=== PATIENT | female | born 1970 | race Hispanic/Latino ===

== ENCOUNTER 2022-07-22 23:14 | Emergency (ER) | payer OTHER, SELFPAY ==
[~2022-07-22] VITALS: Ht 154.9 cm; Wt 73.5 kg
[~2022-07-22 23:14] MED LIST: DICY20TA2 PO; LEVO-70 PO; METR375C2 PO; ONDA4TAB10 PO
[2022-07-22 23:52] LABS: BASOPHILS % (AUTO) 0.5 % (0.0-5.0); EOSINOPHILS % (AUTO) 0.1 % (0.0-8.0); HEMATOCRIT 35.7 % (36-48); LYMPHOCYTES % (AUTO) 14.4 % (21.0-51.0); MEAN CORPUSCULAR HEMOGLOBIN 21.1 pg (27.0-33.0); MEAN CORPUSCULAR HGB CONC 30.3 g/dL (32.0-36.0); MEAN CORPUSCULAR VOLUME 69.9 fL (79-99); MONOCYTES % (AUTO) 5.6 % (3.0-13.0); NEUTROPHILS % (AUTO) 79.1 % (40.0-77.0); PLATELET COUNT (AUTO) 392 K/uL (130-400); RED BLOOD CELL COUNT(AUTO) 5.11 MIL/uL (4.00-5.50); RED CELL DISTRIBUTION WIDTH 21.2 % (11.0-15.5); WHITE BLOOD COUNT (AUTO) 9.2 K/uL (4.8-10.8)
[2022-07-22 23:57] VITALS: BP 114/63
[2022-07-22 23:59] LABS: APPEARANCE,URINE CLEAR (CLEAR); BILIRUBIN,URINE NEGATIVE (NEGATIVE); COLOR,URINE COLORLESS (YELLOW); GLUCOSE, URINE (UA) NEGATIVE (NEGATIVE); KETONES,URINE NEGATIVE (NEGATIVE); LEUKOCYTE ESTERASE ,URINE 500 Leu/uL (NEGATIVE); NITRATE,URINE NEGATIVE (NEGATIVE); OCCULT BLOOD,URINE NEGATIVE (NEGATIVE); PROTEIN,URINE NEGATIVE (NEGATIVE); UROBILINOGEN,URINE 0.2 mg/dL (0.2-1.0)
[2022-07-23] MEDS ORDERED: ACETAMINOPHEN 500 MG TABLET PO ONE
[2022-07-23] MEDS ORDERED: MORPHINE 2 MG SYG IVP ONE
[2022-07-23] MEDS ORDERED: ONDANSETRON 4MG INJ IVP ONE
[2022-07-23 00:12] LABS: BACTERIA,URINE RARE /HPF (None Seen); MUCUS,URINE RARE LPF (None Seen); SQUAMOUS EPITHELIAL CELL,UR FEW /HPF (0-2)
[2022-07-23] MEDS ORDERED: ZOSYN 3.375GM +NS 50ML IVPB ONE (00:30)
[2022-07-23] MEDS ORDERED: 0.9%NACL 1000ML 1,000 ML IV SCH ×3 (00:30)
[2022-07-23 01:07] LABS: CARBON DIOXIDE 21 mmol/L (21-32); CHLORIDE 102 mmol/L (101-111); GLOMERULAR FILTR. RATE CALC 67 mL/min (>90); GLUCOSE,RANDOM 105 mg/dL (70-105); POTASSIUM 3.8 mmol/L (3.5-5.1); SODIUM SERUM 138 mmol/L (136-145); UREA NITROGEN, BLOOD 4 mg/dL (7-18)
[2022-07-23 01:14] LABS: ALANINE AMINOTRANSFERASE 26 U/L (12-78); ALBUMIN 4.2 g/dL (3.5-5.0); ASPARTATE AMINOTRANSFERASE 21 U/L (10-37); TOTAL PROTEIN, SERUM 8.7 g/dL (6.0-8.3)
[2022-07-23 01:19] LABS: LIPASE < 50 U/L (114-286)
[2022-07-23 02:00] LABS: AMYLASE 59 U/L (25-115); CREATINE KINASE, TOTAL 71 U/L (21-232)
[2022-07-23] MEDS ORDERED: IOHEXOL-350 75 ML VIAL IV ONE (02:17)
[2022-07-23] MEDS ORDERED: IBUP-1493 PO (03:33)
[2022-07-23] MEDS ORDERED: ONDA-104 PO (03:33)
[2022-07-23] MEDS ORDERED: NIRM1TAB PO (03:33)
== END 2022-07-23 05:03 | disposition home or self-care (01) ==
LOC: EDH 23:14
DX: U07.1 COVID-19 (principal); R10.2 Pelvic and perineal pain; M79.10 Myalgia, unspecified site; Z79.899 Other long term (current) drug therapy; Z90.49 Acquired absence of other specified parts of digestive tract; Z98.890 Other specified postprocedural states
CPT/HCPCS: 99285; 96375; 87635; 96361 ×2; 82150; 82550; 84484; 80053; 83690; 85025; 85651; 87040 ×2; 87088; 87804 ×2; 83605 ×2; 81001; 36415 ×2; 74177; 96365; 71045; C9803; J7030; J2543; Q9967

== ENCOUNTER 2024-09-15 15:58 | Emergency (ER) | payer BC ==
[~2024-09-15] VITALS: Ht 165.1 cm; Wt 76.2 kg
[~2024-09-15 15:58] MED LIST changes: +IBUP-1493 PO; +NIRM1TAB PO; +ONDA-104 PO; +ONDA-243 PO; -ONDA4TAB10 PO
--- NOTE | 2024-09-15 16:11 | ERN ---
ED Note History of Present Illness Stated Complaint: DIZZY/ FEET AND HANDS ASLEEP/HEADACHE Chief Complaint: Dizzy/Light Headed Time Seen by MD: 16:04 Dictation: PATIENT IS A 54-YEAR-OLD FEMALE COMING IN TODAY WITH OCCIPITAL HEADACHE WITH DIZZINESS VERTIGO ONSET THIS MORNING. SHE STATES SHE HAS HAD THIS BEFORE HOWEVER NEVER HAD THE INSURANCE TO GO SEE A DOCTOR. SHE IS CURRENTLY ALERT AND ORIENTED X4 SPEECH IS CLEAR NIH IS 0. SHE DOES HAVE BILATERAL HORIZONTAL NYSTAGMUS. Allergies: Coded Allergies: No Known Allergies (Unverified Allergy, Unknown, 01/31/22) Home Meds Active Scripts Ondansetron HCl (Ondansetron HCl) 4 Mg Tablet, 4 MG PO TIDP PRN for VOMITING, #20 TAB Prov:RUPALI PITTS MD 07/23/22 Ibuprofen (Motrin/Advil) 800 Mg Tab, 800 MG PO TID, #30 TAB Prov:RUPALI PITTS MD 07/23/22 Nirmatrelvir/Ritonavir (Paxlovid Co-Pack (Eua)) 1 Each Tablet, 1 EACH PO BID, #1 PACK Prov:RUPALI PITTS MD 07/23/22 Ondansetron (Ondansetron Odt) 4 Mg Tab.rapdis, 4 MG PO TIDP, #21 TAB Prov:MARCO A BRAVO 01/31/22 Dicyclomine HCl (Bentyl) 20 Mg Tab, 20 MG PO QID, #28 TAB Prov:MARCO A BRAVO 01/31/22 Metronidazole (Flagyl) 375 Mg Capsule, 375 MG PO TID for 7 Days, #21 CAP Prov:MARCO A BRAVO 01/31/22 Levofloxacin (Levofloxacin) 500 Mg Tablet, 1 TAB PO DAILY for 10 Days, #10 TAB 0 Refills Prov:MARCO A BRAVO 01/31/22 Past Medical History Past Medical History: High Cholesterol Surgical History: Appendectomy Surgical History Other: TUBAL LIGATION Family History: Negative Social History: Lives with family History: Not Applicable RN Note Reviewed/Agreed w/PFSH: Yes Review of System Dictation CONSTITUTIONAL: NEGATIVE EXCEPT FOR HPI HEAD/FACE: NEGATIVE EXCEPT FOR HPI EENT: NEGATIVE EXCEPT FOR HPI RESPIRATORY: NEGATIVE EXCEPT FOR HPI GASTROINTESTINAL/ABDOMINAL: NEGATIVE EXCEPT FOR HPI GENITOURINARY: NEGATIVE EXCEPT FOR HPI MUSCULOSKELETAL: NEGATIVE EXCEPT FOR HPI INTEGUMENTARY: NEGATIVE EXCEPT FOR HPI NUMBNESS AND TINGLING ALL EXTREMITIES NEUROLOGICAL/PSYCH: NEGATIVE EXCEPT FOR HPI OCCIPITAL HEADACHE HEMATOLOGIC/LYMPHATIC: NEGATIVE EXCEPT FOR HPI ALL SYSTEMS NEGATIVE, EXCEPT NOTED ABOVE. 13 POINT REVIEW OF SYSTEMS ASSESSED AND ALL NEGATIVE EXCEPT FOR ABOVE. Initial Vital Sign VS Vital Signs Date Time Temp Pulse Resp B/P (MAP) Pulse Ox O2 Delivery O2 Flow Rate FiO2 09/15/24 16:05 98.1 89 18 125/80 99 09/15/24 16:17 Room Air* 0 21 Physical Exam Dictation VITAL SIGNS REVIEWED GENERAL APPEARANCE: ALERT, ORIENTED X 3, NO ACUTE DISTRESS, WELL DEVELOPED, NOURISHED. OBESE, SPEECH IS CLEAR HEAD AND FACE: NON-TRAUMATIC. EYES: PERRL, PINK CONJUNCTIVAS, EYELID NO TRAUMA, ANTERIOR CHAMBER WITH ARCUS SENILIS. EARS: PINNAS INTACT AND NO SIGNS OF TRAUMA OR ERYTHEMA EAR CANALS CLEAR AND NO DISCHARGE TM NO ERYTHEMA NOSE: NO DISCHARGE, NO BLEEDING. OROPHARYNX: MOUTH NORMAL, TONGUE PINK, PHARYNX CLEAR,NO ERYTHEMA, TONSILS NO EXUDATES, NO ABSCESSES NOTED, MUCOUS MEMBRANE MOIST NECK: SUPPLE, NON-TENDER, NO THYROMEGALY, NO MASSES, NO JVD, NO BRUITS BREAST:DEFERRED CHEST:NO TENDERNESS, NO CREPITUS, NO PARADOXICAL MOVEMENT, NO RETRACTIONS LUNGS:CLEAR, WELL-VENTILATED, SYMMETRIC, NO RALES, NO WHEEZING, NO RHONCHI, NO STRIDOR, GOOD BREATH SOUNDS BILATERALLY HEART: REGULAR RATE, REGULAR RHYTHM, NO MURMUR, NO GALLOPS VASCULAR: NO PERIPHERAL EDEMA, ABDOMEN: SOFT, POSITIVE BOWEL SOUNDS, NONDISTENDED, NO GUARDING, NONTENDER, NO REBOUND, NO MASSES NO HEPATOMEGALY, NO SPLENOMEGALY, NO NYE'S SIGN, NO HERNIAS. RECTAL: DEFERRED GENITAL: DEFERRED NEUROLOGICAL: NORMAL SPEECH, MOTOR FUNCTION INTACT, SENSORY FUNCTION INTACT NIH IS 0 MUSCULOSKELETAL: NECK NONTENDER, FULL RANGE OF MOTION, BACK NONTENDER, FULL RANGE OF MOTION, EXTREMITIES: NONTENDER, FULL RANGE OF MOTION SKIN: COLOR PINK, DRY, NO TURGOR, NO RASH, NO LACERATIONS, NO ABRASIONS, NO CONTUSIONS. LYMPHATIC: DEFERRED Results (Laboratory/Radiology) Laboratory/Radiology Laboratory Tests Test 09/15/24 16:49 White Blood Count 10.7 K/uL (4.8-10.8) Red Blood Count 4.66 MIL/uL (4.00-5.50) Hemoglobin 11.8 g/dL (12.0-16.0) L Hematocrit 36.1 % (36-48) Mean Corpuscular Volume 77.5 fL (79-99) L Mean Corpuscular Hemoglobin 25.3 pg (27.0-33.0) L Mean Corpuscular Hemoglobin Concent 32.7 g/dL (32.0-36.0) Red Cell Distribution Width 19.3 % (11.0-15.5) H Platelet Count 264 K/uL (130-400) Mean Platelet Volume 9.3 fL (7.5-10.5) Immature Granulocyte % (Auto) 0.7 % (0-1) Neutrophils (%) (Auto) 75.3 % (40.0-77.0) Lymphocytes (%) (Auto) 18.5 % (21.0-51.0) L Monocytes (%) (Auto) 4.1 % (3.0-13.0) Eosinophils (%) (Auto) 1.2 % (0.0-8.0) Basophils (%) (Auto) 0.2 % (0.0-5.0) Neutrophils # (Auto) 8.1 K/uL (1.8-7.7) H Lymphocytes # (Auto) 2.0 K/uL (1.0-4.8) Monocytes # (Auto) 0.4 K/uL (0.1-1.0) Eosinophils # (Auto) 0.13 K/uL (0.00-0.70) Basophils # (Auto) 0.02 K/uL (0.00-0.20) Absolute Immature Granulocyte (auto 0.07 K/uL (0-1) Nucleated Red Blood Cells 0.0 % (0.0-0.19) Red Blood Cell Morphology See comments Sodium Level 136 mmol/L (136-145) Potassium Level 3.3 mmol/L (3.5-5.1) L Chloride Level 99 mmol/L (101-111) L Carbon Dioxide Level 28 mmol/L (21-32) Blood Urea Nitrogen 14 mg/dL (7-18) Creatinine 0.7 mg/dL (0.5-1.0) Glomerular Filtration Rate Calc 101 mL/min (>90) Random Glucose 119 mg/dL (70-105) H Total Calcium 8.8 mg/dL (8.5-10.1) Troponin I High Sensitivity < 4 ng/L (4-50) L CT HEAD WITHOUT CONTRAST INDICATION: Occipital headache TECHNIQUE: Noncontrast axial helical CT images from the vertex through the skull base using 5 mm slice thickness without contrast material. CT was performed with one or more of the following dose reduction techniques: Automated exposure control, adjustment of the mA and/or kV according to patient size, or use of iterative reconstruction technique. COMPARISON: None FINDINGS: The cerebral and cerebellar hemispheres are age-appropriate in appearance. No evidence for abnormal extra-axial fluid collections or masses. The ventricles and sulci are normal in size and configuration. No evidence for intracranial parenchymal, epidural, or subdural hemorrhage, mass effect or midline shift. The camara-white matter differentiation is well preserved. No secondary evidence to suggest acute ischemia. The brainstem and cerebellum appear normal. The visualized orbits appear unremarkable. The visible paranasal sinuses and mastoid air cells are clear. The calvarium appears normal. IMPRESSION: No acute intracranial process identified. Labs Reviewed?: Yes EKG: (+) NSR EKG Comment: EKG normal sinus rhythm/heart rate 76/axis normal/no ectopy ED Course ED Course Orders Procedure Category Date Status Time Ct Head/Brain W/O CT 09/15/24 Resulted Contrast 16:07 Cbc With Differential LAB 09/15/24 Complete 16:07 Troponin I High LAB 09/15/24 Complete Sensitivity 16:07 Urinalysis Profile LAB 09/15/24 Logged 16:07 12 Lead Ekg Tracing- EKG 09/15/24 Resulted Technical 16:07 0.9%Nacl 1000ml (Ns PHA 09/15/24 Complete 1000ml) 16:30 Basic Metabolic Panel LAB 09/15/24 Complete 16:07 Meclizine Hcl 25 Mg PHA 09/15/24 Complete (Antivert 25 Mg) 16:30 Methylprednisolone PHA 09/15/24 Complete Succ 125mg (Solu-Medr 16:30 Potassium Bicarb/Cit PHA 09/15/24 Complete Ac 25meq (K-Lyte Ta 18:30 Current Medications Medications (Trade) Dose Ordered Sig/Marlyn Route PRN Reason Start Time Stop Time Status Last Admin Dose Admin Meclizine HCl (ANTIvert 25 mg) 50 mg ONCE ONCE PO 09/15/24 16:30 09/15/24 16:31 DC 09/15/24 18:20 Methylprednisolone Sodium Succinate (Solu-medROL 125MG) 125 mg ONCE ONCE IVP 09/15/24 16:30 09/15/24 16:31 DC 09/15/24 18:21 Potassium Bicarbonate (K-Lyte Tablet Eff 25 Meq Tablet.eff) 25 meq ONCE ONCE PO 09/15/24 18:30 09/15/24 18:31 DC 09/15/24 18:21 Sodium Chloride 1,000 ml @ 0 mls/hr ONCE ONCE IV 09/15/24 16:30 09/15/24 16:31 DC 09/15/24 18:18 Vital Signs Date Time Temp Pulse Resp B/P (MAP) Pulse Ox O2 Delivery O2 Flow Rate FiO2 09/15/24 18:35 97.9 74 18 122/67 100 Room Air* 0 21 09/15/24 16:17 98.1 89 18 125/80 99 Room Air* 0 21 09/15/24 16:05 98.1 89 18 125/80 99 1900/patient states she feels markedly improved after treatment with fluids potassium meclizine and Solu-Medrol. Her eyes are open NIH is 0 at bedside and she wishes to go home. Potassium was 3.3 and it was replaced HEART Score Response (Comments) Value History: Low suspicion (0) 0 Age: 45-65yrs (+1) 1 Risk Factors: 1-2 risk factors (+1) 1 Initial Troponin: Normal limit (0) 0 Total 2 Medical Decision Making [facility] MDM: Differential diagnosis: Subarachnoid, subdural, neurovascular lesion/ACS/AMI/vertigo/labyrinthitis/electrolyte imbalance Rationale: Tests considered and ordered secondary to shared decision making include:/dehydration EKG/labs/radiology Previous outside records reviewed: Old ER visits. Risk of complication and/or morbidity or mortality of patient management: None Medications-Per medication reconciliation Need for hospitalization: Patient does not meet criteria for hospitalization. No Need for emergency major/minor surgery: No There are no social concerns with this patient. Prescription drug management meclizine/prednisone Prescriptions will include symptomatic care Patient's prior external medical records from other ER visits were reviewed by me as indicated. Prior testing and results from previous visits were reviewed. Prior tests were taken into account with medical decision making and resource utilization, independent historian/historians were used to obtain complete med ical history. I independently interpreted the test that were performed, results were reviewed by me and considered findings on radiology if ordered. Medical management and examination interpretation discussions were had by me with other qualified healthcare professionals as indicated for the patient's care. DX & DISP Disposition: Discharge Departure Impression: Primary Impression: Benign positional vertigo Additional Impressions: Acute labyrinthitis, Hypokalemia, Hypochloremia Condition: Stable Scripts Methylprednisolone (Medrol) 4 Mg Tab.ds.pk 1 TAB PO AD for 6 Days, #21 TAB 0 Refills 6 on day 1 then reduce by one tablet daily until gone Prov: RENÉ LAMAS NP 09/15/24 Meclizine HCl (Meclizine HCl) 25 Mg Tablet 25 MG PO TID for vertigo, #30 TAB 0 Refills Prov: RENÉ LAMAS NP 09/15/24 Additional Instructions: Follow-up with primary care provider in 1 to 2 days. Take medications as directed here in the emergency room. Okay to continue home medications unless otherwise discussed during your visit in the emergency room today. Return to your nearest emergency room if symptoms worsen or if there is no improvement. Call 911 if you need immediate assistance. Take Tylenol or Motrin [id number] as needed and if no contraindications are present. Increase oral hydration. A wound culture or urine culture was ordered here in the emergency room department please follow-up with primary care provider and advise them to get repeat ports from our facility. If you had any Lew wrap/splints that were applied here, please do not remove them until you see your primary care or specialty. Take meclizine every 8 hours for the next three days. Take Medrol Dosepak as directed until gone. , follow up with your primary care doctor in the next 1-2 days. Referrals: SELF,REFERRAL (PCP) Time of Disposition: 19:04 I have reviewed the case, and I agree with, Diagnosis and Plan RENÉ LAMAS NP Sep 15, 2024 16:11
--- NOTE | 2024-09-15 16:28 | EKG ---
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
[2024-09-15 16:54] LABS: BASOPHILS # (AUTO) 0.02 K/uL (0.00-0.20); BASOPHILS % (AUTO) 0.2 % (0.0-5.0); EOSINOPHILS # (AUTO) 0.13 K/uL (0.00-0.70); EOSINOPHILS % (AUTO) 1.2 % (0.0-8.0); HEMATOCRIT 36.1 % (36-48); IMMATURE GRANULOCYTE ABSOLUTE 0.07 K/uL (0-1); LYMPHOCYTES % (AUTO) 18.5 % (21.0-51.0); MEAN CORPUSCULAR HEMOGLOBIN 25.3 pg (27.0-33.0); MEAN CORPUSCULAR HGB CONC 32.7 g/dL (32.0-36.0); MEAN CORPUSCULAR VOLUME 77.5 fL (79-99); MONOCYTES # (AUTO) 0.4 K/uL (0.1-1.0); MONOCYTES % (AUTO) 4.1 % (3.0-13.0); NEUTROPHILS # (AUTO) 8.1 K/uL (1.8-7.7); NEUTROPHILS % (AUTO) 75.3 % (40.0-77.0); PLATELET COUNT (AUTO) 264 K/uL (130-400); RED BLOOD CELL COUNT(AUTO) 4.66 MIL/uL (4.00-5.50); RED CELL DISTRIBUTION WIDTH 19.3 % (11.0-15.5); WHITE BLOOD COUNT (AUTO) 10.7 K/uL (4.8-10.8)
[2024-09-15 17:06] LABS: CREATININE 0.7 mg/dL (0.5-1.0); POTASSIUM 3.3 mmol/L (3.5-5.1)
--- NOTE | 2024-09-15 17:30 | HMCIMG ---
CT HEAD WITHOUT CONTRAST INDICATION: Occipital headache TECHNIQUE: Noncontrast axial helical CT images from the vertex through the skull base using 5 mm slice thickness without contrast material. CT was performed with one or more of the following dose reduction techniques: Automated exposure control, adjustment of the mA and/or kV according to patient size, or use of iterative reconstruction technique. COMPARISON: None FINDINGS: The cerebral and cerebellar hemispheres are age-appropriate in appearance. No evidence for abnormal extra-axial fluid collections or masses. The ventricles and sulci are normal in size and configuration. No evidence for intracranial parenchymal, epidural, or subdural hemorrhage, mass effect or midline shift. The camara-white matter differentiation is well preserved. No secondary evidence to suggest acute ischemia. The brainstem and cerebellum appear normal. The visualized orbits appear unremarkable. The visible paranasal sinuses and mastoid air cells are clear. The calvarium appears normal. IMPRESSION: No acute intracranial process identified.
[2024-09-15] MEDS: 0.9%NACL 1000ML 1,000 ML IV ONE (18:18)
[2024-09-15] MEDS: mecliZINE HCL 25 MG TABLET PO ONE (18:20)
[2024-09-15] MEDS: PoTASSium BIcarbonate/CIT AC 25 MEQ TABLET.EFF PO ONE (18:21)
[2024-09-15] MEDS: Solu-medROL 125MG VIAL IVP ONE (18:21)
[2024-09-15] MEDS ORDERED: MECL-302 PO (19:05)
[2024-09-15] MEDS ORDERED: METH4TAB3 PO (19:05)
[2024-09-15 19:27] VITALS: BP 121/59; PULSE 74; RESP 18; TEMP 97.9; O2SAT 99
== END 2024-09-15 19:35 | disposition home or self-care (01) ==
LOC: EDH 15:58
DX: H81.10 Benign paroxysmal vertigo, unspecified ear (principal); E87.6 Hypokalemia; E87.8 Other disorders of electrolyte and fluid balance, not elsewhere classified; H83.09 Labyrinthitis, unspecified ear; E78.00 Pure hypercholesterolemia, unspecified; Z79.1 Long term (current) use of non-steroidal anti-inflammatories (NSAID); Z90.49 Acquired absence of other specified parts of digestive tract; Z98.51 Tubal ligation status
CPT/HCPCS: 99284; 96374; 70450; 84484; 80048; 85025; 36415; 93005; J2919; J7030